=== PATIENT | female | born 1950 | race Caucasian/White ===

== ENCOUNTER 2019-11-13 12:21 | Emergency (ER) | payer OTHER ==
[~2019-11-13] VITALS: Ht 152.4 cm; Wt 68.0 kg
[2019-11-13] MEDS ORDERED: SODIUM CHLORIDE 0.9% 1,000 ML IVB ONE (13:04)
[2019-11-13 14:04] LABS: Basophils # (auto) 0.1 10 ^3/uL (0-0.2); Eosinophils # (auto) 0.1 10 ^3/uL (0-0.8); Eosinophils % (auto) 1.6 % (0.0-7.0); Hematocrit 40.8 % (36.0-46.0); Hemoglobin 13.8 g/dL (12.2-16.2); Lymphocytes # (auto) 1.5 10 ^3/uL (0.4-5.4); Lymphocytes % (auto) 17.7 % (10.0-50.0); Mean Corpuscular Hemoglobin 32.5 pg (28.0-32.0); Mean Corpuscular Hgb Conc. 33.8 g/dL (32.0-36.0); Mean Corpuscular Volume 96.2 fL (80.0-100.0); Monocytes # (auto) 0.4 10 ^3/uL (0-1.3); Neutrophils # (auto) 6.4 10 ^3/uL (1.6-8.6); Neutrophils % (auto) 74.7 % (37.0-80.0); Nucleated Red Blood Cells % 0.1 %; Platelet Count (auto) 267 10^3/uL (140-450); Red Blood Cells 4.24 10^6/uL (4.0-5.20); Red Cell Distribution Width 13.5 % (11.8-14.3); White Blood Cell 8.5 10^3/uL (4.4-10.8)
[2019-11-13 14:21] LABS: Albumin 3.3 g/dL (3.4-5.0); Anion Gap 6 (5-15); Blood Urea Nitrogen 14 mg/dL (7-18); Calcium 7.6 mg/dL (8.5-10.1); Carbon Dioxide 28 mmol/L (21-32); Chloride 110 mmol/L (98-107); Glucose 86 mg/dL (74-106); Magnesium 2.2 mg/dL (1.6-2.6); Potassium 3.5 mmol/L (3.5-5.1); Sodium 144 mmol/L (136-145)
[2019-11-13 14:28] LABS: Alanine Aminotransferase 28 U/L (13-56); Alkaline Phosphatase 82 U/L (45-117); Aspartate Aminotransferase 34 U/L (15-37); BUN/Creatinine Ratio 23.7; Bilirubin, Total 0.2 mg/dL (0.2-1.0); GFR African American 130 mL/min; GFR Non-African American 107 mL/min; Total Protein 5.8 g/dL (6.4-8.2)
[2019-11-13] MEDS ORDERED: FOLIC ACID 1 MG, MULTIPLE VITAMIN 10 ML, MAGNESIUM SULF SDV 50% 8 MEQ, THIAMINE INJ 100... INJ STA ×5 (14:44)
[2019-11-13] MEDS ORDERED: THIAMINE 100mg/ml INJ (200mg/2ml VIAL) IV ONE (14:45)
[2019-11-13] MEDS ORDERED: ACETAMINOPHEN 325 MG TAB PO ONE (14:45)
[2019-11-13 18:39] VITALS: BP 136/69
[2019-11-13] MEDS ORDERED: cefTRIAXone SOD 1,000 MG VL IM ONE (20:00)
[2019-11-13] MEDS ORDERED: LIDOCAINE 1% HCL (LOCAL ANESTH.) INJ 20ML MDV ONE (20:00)
== END 2019-11-13 20:52 | disposition home or self-care (01) ==
LOC: ER 12:21 → EDBD 12:21 → ER 20:52
DX: S63.104A Unspecified dislocation of right thumb, initial encounter (principal); S61.011A Laceration without foreign body of right thumb without damage to nail, initial encounter; F10.129 Alcohol abuse with intoxication, unspecified; R55 Syncope and collapse; I10 Essential (primary) hypertension; Y90.9 Presence of alcohol in blood, level not specified; W10.8XXA Fall (on) (from) other stairs and steps, initial encounter; Y93.89 Activity, other specified; Y92.89 Other specified places as the place of occurrence of the external cause; Y99.8 Other external cause status
CPT/HCPCS: 26770; 36415; 70450; 71045; 73130; 73140; 80053; 80320; 83735; 84484; 85025; 93005; 96365; 96372; 96375; 99285; J0696; J2001; J3411; J3475; J7030; 12001

== ENCOUNTER 2020-05-05 19:04 | Emergency (ER) | payer OTHER ==
[~2020-05-05] VITALS: Ht 162.6 cm; Wt 68.0 kg
[2020-05-05] MEDS ORDERED: SODIUM CHLORIDE 0.9% 1,000 ML IV ONE ×2 (19:45→21:15)
[2020-05-05 20:47] LABS: Basophils # (auto) 0 10 ^3/uL (0-0.2); Basophils % (auto) 0.5 % (0.0-2.0); Eosinophils # (auto) 0.1 10 ^3/uL (0-0.8); Hematocrit 34.9 % (36.0-46.0); Hemoglobin 11.8 g/dL (12.2-16.2); Lymphocytes # (auto) 0.8 10 ^3/uL (0.4-5.4); Lymphocytes % (auto) 11.4 % (10.0-50.0); Mean Corpuscular Hemoglobin 32.5 pg (28.0-32.0); Mean Corpuscular Hgb Conc. 33.8 g/dL (32.0-36.0); Monocytes # (auto) 0.5 10 ^3/uL (0-1.3); Monocytes % (auto) 7.1 % (0.0-12.0); Neutrophils # (auto) 5.5 10 ^3/uL (1.6-8.6); Platelet Count (auto) 189 10^3/uL (140-450); Red Blood Cells 3.64 10^6/uL (4.0-5.20); Red Cell Distribution Width 14.6 % (11.8-14.3); White Blood Cell 6.9 10^3/uL (4.4-10.8)
[2020-05-05 20:57] LABS: Albumin 3.5 g/dL (3.4-5.0); Anion Gap 6 (5-15); Blood Urea Nitrogen 26 mg/dL (7-18); Calcium 7.8 mg/dL (8.5-10.1); Carbon Dioxide 27 mmol/L (21-32); Chloride 107 mmol/L (98-107); Glucose 92 mg/dL (74-106); INR 1.08 (0.9-1.15); Partial Thromboplastin Time 25.1 sec (23.0-31.2); Sodium 140 mmol/L (136-145)
[2020-05-05 21:04] LABS: Alanine Aminotransferase 32 U/L (13-56); Alkaline Phosphatase 103 U/L (45-117); Aspartate Aminotransferase 34 U/L (15-37); BUN/Creatinine Ratio 18.6; Bilirubin, Total 0.5 mg/dL (0.2-1.0); GFR African American 48 mL/min; GFR Non-African American 40 mL/min; Total Protein 5.9 g/dL (6.4-8.2)
[2020-05-05 21:22] LABS: Potassium 2.7 mmol/L (3.5-5.1)
[2020-05-05] MEDS ORDERED: PAR20T PO (21:33)
[2020-05-05] MEDS ORDERED: LAMO200T34 PO (21:33)
[2020-05-05] MEDS ORDERED: BISO5TAB44 PO (21:33)
[2020-05-05] MEDS ORDERED: LOSA-39 PO (21:33)
[2020-05-05] MEDS ORDERED: ARIP5TAB36 PO (21:33)
[2020-05-05] MEDS ORDERED: GABA300C10 PO (21:33)
[2020-05-05] MEDS ORDERED: HYDR12.56 PO (21:33)
[2020-05-05] MEDS ORDERED: POTASSIUM CHL 20MEQ/100ML 100 ML IV ONE (22:00)
[2020-05-05] MEDS ORDERED: POTASSIUM EFFERVESENT TAB 25 MEQ PO ONE (22:00)
[2020-05-06] VITALS: BP 92/59
[2020-05-06 01:56] LABS: Urine Bacteria FEW /hpf (None Seen); Urine Blood Negative /uL (Negative); Urine Hyaline Cast MOD /lpf (0 - 2); Urine WBC 89 /hpf (0 - 5)
== END 2020-05-06 02:31 | disposition home or self-care (01) ==
LOC: EDBD 19:04 → ER 19:04
DX: E87.6 Hypokalemia (principal); N39.0 Urinary tract infection, site not specified; I10 Essential (primary) hypertension; F41.9 Anxiety disorder, unspecified
CPT/HCPCS: 36415; 70450; 71045; 80053; 81001; 83605; 83880; 84484; 85025; 85610; 85730; 87040; 87086; 96361; 96365; 96366; 99285; J3480; J7030

== ENCOUNTER 2021-07-01 17:50 | Emergency (ER) | payer OTHER ==
[~2021-07-01] VITALS: Ht 152.4 cm; Wt 53.1 kg
[~2021-07-01 17:50] MED LIST: ARIP5TAB36 PO; BISO5TAB44 PO; GABA300C10 PO; HYDR12.56 PO; LAMO200T34 PO; LOSA-39 PO; PAR20T PO
[2021-07-01] MEDS ORDERED: HYDROcodone-ACET 5/325MG TAB PO ONE (19:45)
[2021-07-01 20:38] VITALS: BP 103/67
== END 2021-07-01 21:26 | disposition home or self-care (01) ==
LOC: ER 17:50 → EDBD 17:50 → ER 21:26
DX: S90.32XA Contusion of left foot, initial encounter (principal); W18.39XA Other fall on same level, initial encounter; Y93.89 Activity, other specified; Y92.89 Other specified places as the place of occurrence of the external cause; Y99.8 Other external cause status
CPT/HCPCS: 29515; 72170; 73610; 73630

== ENCOUNTER 2022-04-02 21:42 | Emergency (ER) | payer OTHER ==
[~2022-04-02] VITALS: Ht 162.6 cm; Wt 150.0 kg
[2022-04-02 23:11] LABS: Basophils # (auto) 0 10 ^3/uL (0-0.2); Basophils % (auto) 1.1 % (0.0-2.0); Eosinophils # (auto) 0.1 10 ^3/uL (0-0.8); Eosinophils % (auto) 2.5 % (0.0-7.0); Hematocrit 31.4 % (36.0-46.0); Lymphocytes # (auto) 0.7 10 ^3/uL (0.4-5.4); Lymphocytes % (auto) 16.2 % (10.0-50.0); Mean Corpuscular Hemoglobin 31.1 pg (28.0-32.0); Mean Corpuscular Hgb Conc. 31.9 g/dL (32.0-36.0); Mean Corpuscular Volume 97.4 fL (80.0-100.0); Monocytes # (auto) 0.3 10 ^3/uL (0-1.3); Monocytes % (auto) 5.9 % (0.0-12.0); Neutrophils # (auto) 3.2 10 ^3/uL (1.6-8.6); Neutrophils % (auto) 74.3 % (37.0-80.0); Red Blood Cells 3.23 10^6/uL (4.0-5.20); Red Cell Distribution Width 16.5 % (11.8-14.3); White Blood Cell 4.3 10^3/uL (4.4-10.8)
[2022-04-02 23:34] LABS: BUN/Creatinine Ratio 13.6; Calcium 6.9 mg/dL (8.5-10.1)
[2022-04-02 23:37] LABS: Bilirubin, Total 0.3 mg/dL (0.2-1.0)
[2022-04-02 23:38] LABS: Potassium 2.9 mmol/L (3.5-5.1)
[2022-04-03] MEDS ORDERED: SODIUM CHLORIDE 0.9% 1,000 ML IV ONE ×3 (00:15→03:00)
[2022-04-03] MEDS: POTASSIUM CHL 20MEQ/100ML 100 ML IV SCH ×3 (01:55→05:49)
[2022-04-03 03:08] LABS: Amphetamine Screen, Urine NEGATIVE (NEGATIVE); Barbiturate Scree,Urine NEGATIVE (NEGATIVE); Benzodiazephine Screen, Urine POSITIVE (NEGATIVE); Cannabinoid Screen, Urine NEGATIVE (NEGATIVE); Cocaine Screen, Urine NEGATIVE (NEGATIVE); Opiate Scree,Urine POSITIVE (NEGATIVE); Phencyclidine Screen, Urine NEGATIVE (NEGATIVE)
[2022-04-03 03:15] LABS: Urine Bacteria FEW /hpf (None Seen); Urine Blood Negative /uL (Negative); Urine Hyaline Cast FEW /lpf (0 - 2); Urine Mucus FEW (None Seen); Urine Specific Gravity 1.007 (1.001-1.035); Urine WBC 41 /hpf (0 - 5)
[2022-04-03 05:23] LABS: Calcium 7.2 mg/dL (8.5-10.1)
[2022-04-03 05:26] LABS: BUN/Creatinine Ratio 12.9
[2022-04-03] MEDS ORDERED: LEVO500T31 PO (08:35)
[2022-04-03] MEDS ORDERED: FOLIC ACID 1 MG TAB PO ONE (08:45)
[2022-04-03] MEDS ORDERED: DEXTROSE (50%) 50ML SYRG IV ONE (09:00)
[2022-04-03] MEDS ORDERED: cefTRIAXone 1GM/50ML D5W 50 ML IV SCH (09:00)
[2022-04-03] MEDS ORDERED: THIAMINE 100mg/ml INJ (200mg/2ml VIAL) IV SCH (10:00)
[2022-04-03 11:55] VITALS: BP 125/55
== END 2022-04-03 12:45 | disposition home or self-care (01) ==
LOC: EDUNIT# 21:42 → EDBD 21:42 → ER 21:42
DX: R55 Syncope and collapse (principal); I95.9 Hypotension, unspecified; E87.6 Hypokalemia; E16.2 Hypoglycemia, unspecified; I10 Essential (primary) hypertension; Z79.899 Other long term (current) drug therapy; Z20.822 Contact with and (suspected) exposure to COVID-19
CPT/HCPCS: 36415; 71045; 80048; 80053; 80307; 81001; 82962; 83605; 83880; 84484; 85025; 87426; 96361; 96365; 96366; 96367; 96375; 99285; J0696; J3411; J3480; J7030; J7042

== ENCOUNTER 2022-04-17 10:05 | Emergency (ER) | payer OTHER ==
[~2022-04-17] VITALS: Ht 154.9 cm; Wt 51.5 kg
[~2022-04-17 10:05] MED LIST changes: +LEVO500T31 PO
[2022-04-17 11:29] VITALS: BP 110/57
== END 2022-04-17 13:24 | disposition home or self-care (01) ==
LOC: ER 10:05
DX: S52.502A Unspecified fracture of the lower end of left radius, initial encounter for closed fracture (principal); I10 Essential (primary) hypertension; W01.0XXA Fall on same level from slipping, tripping and stumbling without subsequent striking against object, initial encounter; Y93.89 Activity, other specified; Y92.89 Other specified places as the place of occurrence of the external cause; Y99.8 Other external cause status
CPT/HCPCS: 29125; 73110

== ENCOUNTER 2022-05-01 08:36 | Inpatient (IN) | payer OTHER ==
[~2022-05-01] VITALS: Ht 152.4 cm; Wt 54.0 kg
[2022-05-01 10:17] LABS: Basophils # (auto) 0 10 ^3/uL (0-0.2); Basophils % (auto) 0.5 % (0.0-2.0); Eosinophils # (auto) 0.2 10 ^3/uL (0-0.8); Eosinophils % (auto) 2.4 % (0.0-7.0); Hemoglobin 11.4 g/dL (12.2-16.2); Lymphocytes # (auto) 0.6 10 ^3/uL (0.4-5.4); Mean Corpuscular Hemoglobin 30.6 pg (28.0-32.0); Mean Corpuscular Hgb Conc. 32.6 g/dL (32.0-36.0); Mean Corpuscular Volume 93.7 fL (80.0-100.0); Monocytes # (auto) 0.4 10 ^3/uL (0-1.3); Monocytes % (auto) 5.2 % (0.0-12.0); Neutrophils # (auto) 6.2 10 ^3/uL (1.6-8.6); Neutrophils % (auto) 83.9 % (37.0-80.0); Red Blood Cells 3.73 10^6/uL (4.0-5.20); Red Cell Distribution Width 15.4 % (11.8-14.3); White Blood Cell 7.3 10^3/uL (4.4-10.8)
[2022-05-01 10:35] LABS: Calcium 8.8 mg/dL (8.5-10.1); Potassium 3.7 mmol/L (3.5-5.1)
[2022-05-01 10:40] LABS: BUN/Creatinine Ratio 13.3; Bilirubin, Total 0.7 mg/dL (0.2-1.0); Total Protein 6.3 g/dL (6.4-8.2)
[2022-05-01 11:38] LABS: INR 1.11 (0.9-1.15); Partial Thromboplastin Time 30.2 sec (24.6-33.4)
[2022-05-01] MEDS ORDERED: hydrALAZINE HCL 20 MG/ML VL IV PRN (11:45)
[2022-05-01] MEDS ORDERED: MORPHINE SULFATE INJ 2 MG/ml SYRG IV PRN (11:45)
[2022-05-01] MEDS ORDERED: NITROGLYCERIN 0.4 MG SL TAB SL PRN (11:45)
[2022-05-01] MEDS ORDERED: HYDROcodone-ACET 10/325MG TAB PO PRN (14:00)
[2022-05-01 23:00] VITALS: BP 149/72
[2022-05-02 05:00] VITALS: BP 127/61
[2022-05-02 05:17] LABS: Basophils # (auto) 0.1 10 ^3/uL (0-0.2); Basophils % (auto) 1.1 % (0.0-2.0); Eosinophils # (auto) 0.3 10 ^3/uL (0-0.8); Eosinophils % (auto) 4.8 % (0.0-7.0); Hematocrit 29.4 % (36.0-46.0); Hemoglobin 10.2 g/dL (12.2-16.2); Lymphocytes # (auto) 0.8 10 ^3/uL (0.4-5.4); Lymphocytes % (auto) 12.6 % (10.0-50.0); Mean Corpuscular Hemoglobin 31.9 pg (28.0-32.0); Mean Corpuscular Hgb Conc. 34.6 g/dL (32.0-36.0); Mean Corpuscular Volume 92.4 fL (80.0-100.0); Monocytes # (auto) 0.4 10 ^3/uL (0-1.3); Monocytes % (auto) 6.8 % (0.0-12.0); Neutrophils # (auto) 4.6 10 ^3/uL (1.6-8.6); Neutrophils % (auto) 74.7 % (37.0-80.0); Red Blood Cells 3.18 10^6/uL (4.0-5.20); Red Cell Distribution Width 15.8 % (11.8-14.3); White Blood Cell 6.2 10^3/uL (4.4-10.8)
[2022-05-02 05:34] LABS: Potassium 3.4 mmol/L (3.5-5.1)
[2022-05-02 05:39] LABS: BUN/Creatinine Ratio 17.9; Calcium 8.4 mg/dL (8.5-10.1)
[2022-05-02 08:00] VITALS: BP 164/80
[2022-05-02] MEDS ORDERED: ceFAZolin 1GM/50ML 100 ML IV ONE (09:10)
[2022-05-02] MEDS ORDERED: BUPIVACAINE W/ EPINEPH 0.5% INJ 50ML MDV IJ ONE (09:38)
[2022-05-02] MEDS ORDERED: fentaNYL CITRATE 100 MCG/2 ML VL ONE ×2 (10:50→12:14)
[2022-05-02] MEDS ORDERED: MIDAZOLAM HCL 2MG/2ML 2ml VIAL (1mg/ml) ONE (10:50)
[2022-05-02] MEDS ORDERED: HYDROmorphone HCL 2 MG/ML VL/or syr ONE (11:51)
[2022-05-02] MEDS ORDERED: HYDROmorphone HCL 2 MG/ML VL/or syr IV ONE (12:00)
[2022-05-02 12:07] VITALS: BP 164/80
[2022-05-02] MEDS ORDERED: PROPOFOL 10 MG/ML 20 ML IV ONE (12:32)
[2022-05-02] MEDS ORDERED: ONDANSETRON HCL 4 MG/2 ML VIAL ONE (12:32)
[2022-05-02] MEDS ORDERED: LIDOCAINE 2% (LOCAL ANESTH.) PF 5ml SDV ONE (12:32)
[2022-05-02] MEDS ORDERED: GLYCOPYRROLATE 0.2 MG/ML 1ML VIAL ONE (12:57)
== END 2022-05-02 13:33 | disposition home health service (06) | DRG 563 ==
LOC: ER 08:36 → WEST WING 11:48 → OVERFLOW 20:07 → WEST WING 22:35
PROVIDERS: ADMIT Internal Medicine; ATTEND Internal Medicine
DX: S52.592A Other fractures of lower end of left radius, initial encounter for closed fracture (principal); W18.39XA Other fall on same level, initial encounter; I10 Essential (primary) hypertension; F41.9 Anxiety disorder, unspecified; Z20.822 Contact with and (suspected) exposure to COVID-19; Y93.89 Activity, other specified; Y92.89 Other specified places as the place of occurrence of the external cause; Y99.8 Other external cause status; Z90.710 Acquired absence of both cervix and uterus; Z98.84 Bariatric surgery status
CPT/HCPCS: 36415; 71046; 73110; 80048; 80053; 84484; 85025; 85610; 85730; 86850; 86900; 86901; 96374; G0378; J0690; J2001; J2250; J2405; J2704

== ENCOUNTER 2022-05-10 10:17 | Emergency (ER) | payer OTHER ==
[~2022-05-10] VITALS: Ht 160 cm; Wt 140.0 kg
[~2022-05-10 10:17] MED LIST changes: -LEVO500T31 PO
[2022-05-10 10:54] LABS: Basophils # (auto) 0.1 10 ^3/uL (0-0.2); Basophils % (auto) 1.1 % (0.0-2.0); Eosinophils # (auto) 0.1 10 ^3/uL (0-0.8); Eosinophils % (auto) 1.7 % (0.0-7.0); Hematocrit 35.5 % (36.0-46.0); Hemoglobin 11.3 g/dL (12.2-16.2); Lymphocytes # (auto) 0.8 10 ^3/uL (0.4-5.4); Lymphocytes % (auto) 10.1 % (10.0-50.0); Mean Corpuscular Hemoglobin 30.3 pg (28.0-32.0); Mean Corpuscular Hgb Conc. 31.7 g/dL (32.0-36.0); Mean Corpuscular Volume 95.4 fL (80.0-100.0); Monocytes # (auto) 0.4 10 ^3/uL (0-1.3); Monocytes % (auto) 5.1 % (0.0-12.0); Neutrophils # (auto) 6.4 10 ^3/uL (1.6-8.6); Red Blood Cells 3.72 10^6/uL (4.0-5.20); Red Cell Distribution Width 15.3 % (11.8-14.3); White Blood Cell 7.8 10^3/uL (4.4-10.8)
[2022-05-10 11:23] LABS: Albumin 3.8 g/dL (3.4-5.0); Calcium 8.7 mg/dL (8.5-10.1); Potassium 3.6 mmol/L (3.5-5.1)
[2022-05-10 11:26] LABS: BUN/Creatinine Ratio 14.1; Bilirubin, Total 0.7 mg/dL (0.2-1.0); Total Protein 6.2 g/dL (6.4-8.2)
[2022-05-10] MEDS ORDERED: methylPREDNISolone SOD SUCC 125 MG/2 ML VL IV ONE (12:15)
[2022-05-10] MEDS ORDERED: cefTRIAXone 1GM/50ML D5W 50 ML IV ONE (16:15)
[2022-05-10] MEDS ORDERED: AZITHROMYCIN 500MG/ 250ML 250 ML IV ONE (16:15)
[2022-05-10] MEDS ORDERED: FUROSEMIDE 40 MG/4 ML VIAL IV ONE (17:00)
[2022-05-10] MEDS ORDERED: FUROSEMIDE 20 MG/2 ML VIAL IV ONE ×2 (17:30→18:30)
[2022-05-10] MEDS ORDERED: IPRAAER6 IN (18:04)
[2022-05-10] MEDS ORDERED: FURO20TA3 PO (18:04)
[2022-05-10] MEDS ORDERED: SPIR25TA PO (18:04)
[2022-05-10] MEDS ORDERED: IPRATROPIUM BROM 0.5 MG/2.5ML INH SOL NEB SCH (18:30)
[2022-05-10 19:09] LABS: Urine Bacteria NONE SEEN /hpf (None Seen); Urine Blood Negative /uL (Negative); Urine Specific Gravity 1.036 (1.001-1.035); Urine WBC 1 /hpf (0 - 5)
[2022-05-10 21:17] VITALS: BP 165/76
[2022-05-10] MEDS ORDERED: IPRATROPIUM BROM 0.5 MG/2.5ML INH SOL NEB PRN (22:00)
[2022-05-11 12:00] VITALS: BP 141/68
== END 2022-05-11 19:20 | disposition left against medical advice (07) ==
LOC: ER 10:17 → EDBD 10:17 → ER 05-11 19:20
DX: R06.03 Acute respiratory distress (principal); J18.9 Pneumonia, unspecified organism; I10 Essential (primary) hypertension; Z90.49 Acquired absence of other specified parts of digestive tract; Z90.89 Acquired absence of other organs; Z90.710 Acquired absence of both cervix and uterus
CPT/HCPCS: 36415; 71045; 71275; 80053; 81001; 83880; 84484; 85025; 93005; 96365; 96366; 96367; 96375; 96376; 99285; J0456; J0696; J1940; J2930

== ENCOUNTER 2023-05-30 11:35 | Emergency (ER) | payer OTHER ==
[~2023-05-30] VITALS: Ht 152.4 cm; Wt 52.0 kg
[~2023-05-30 11:35] MED LIST changes: +FURO20TA3 PO; +GABA-1250 PO; -GABA300C10 PO; -HYDR12.56 PO; +HYDR12.59 PO; +IPRAAER6 IN; -LOSA-39 PO; +LOSA100T58 PO; +SPIR25TA PO
[2023-05-30 12:38] LABS: Basophils # (auto) 0.1 10 ^3/uL (0-0.2); Basophils % (auto) 1.7 % (0.0-2.0); Eosinophils # (auto) 0.2 10 ^3/uL (0-0.8); Eosinophils % (auto) 3.5 % (0.0-7.0); Hematocrit 34.8 % (36.0-46.0); Hemoglobin 11.2 g/dL (12.2-16.2); Lymphocytes # (auto) 0.9 10 ^3/uL (0.4-5.4); Lymphocytes % (auto) 14.5 % (10.0-50.0); Mean Corpuscular Hemoglobin 27.9 pg (28.0-32.0); Mean Corpuscular Hgb Conc. 32.2 g/dL (32.0-36.0); Mean Corpuscular Volume 86.8 fL (80.0-100.0); Monocytes # (auto) 0.6 10 ^3/uL (0-1.3); Monocytes % (auto) 10.3 % (0.0-12.0); Neutrophils # (auto) 4.4 10 ^3/uL (1.6-8.6); Red Blood Cells 4.01 10^6/uL (4.0-5.20); Red Cell Distribution Width 19.3 % (11.8-14.3); White Blood Cell 6.2 10^3/uL (4.4-10.8)
[2023-05-30 13:26] LABS: Albumin 4.2 g/dL (3.2-4.8); Alkaline Phosphatase 102 U/L (46-116); Anion Gap 6 (5-15); Aspartate Aminotransferase 15 U/L (13-40); BUN/Creatinine Ratio 16.1 (10.0-20.0); Bilirubin, Total 0.3 mg/dL (0.2-1.0); Blood Urea Nitrogen 18 mg/dL (9-23); Calcium 8.8 mg/dL (8.5-10.1); Carbon Dioxide 29 mmol/L (20-30); Chloride 106 mmol/L (98-107); Glucose 84 mg/dL (74-106); Potassium 3.6 mmol/L (3.5-5.1); Sodium 141 mmol/L (136-145); Total Protein 6.3 g/dL (5.7-8.2)
[2023-05-30 13:29] LABS: Alanine Aminotransferase < 9 U/L (7-40)
[2023-05-30 13:42] LABS: Magnesium 1.6 mg/dL (1.6-2.6)
[2023-05-30 17:17] LABS: Urine Bacteria FEW /hpf (None Seen); Urine Blood Negative /uL (Negative); Urine Clarity Clear (Clear); Urine Color Colorless (Yellow); Urine Protein, UAD Negative (Negative); Urine Urobilinogen Normal (Negative); Urine WBC 1 /hpf (0 - 5); Urine pH 5.5 (5.0-8.0)
[2023-05-30 18:00] VITALS: BP 140/80; PULSE 73; RESP 16; TEMP 97.2; O2SAT 96
[2023-05-30] MEDS ORDERED: CEPH500C PO (18:37)
== END 2023-05-30 18:43 | disposition home or self-care (01) ==
LOC: EDBD 11:35 → ER 11:35
DX: R20.0 Anesthesia of skin (principal); N39.0 Urinary tract infection, site not specified; Z79.899 Other long term (current) drug therapy
CPT/HCPCS: 36415; 70450; 80053; 81001; 83605; 83735; 84484; 85025

== ENCOUNTER 2023-06-16 16:36 | Inpatient (IN) | payer OTHER ==
[~2023-06-16] VITALS: Ht 180.3 cm; Wt 57.0 kg
[~2023-06-16 16:36] MED LIST changes: +CEPH500C PO
[2023-06-16] MEDS ORDERED: SODIUM CHLORIDE 0.9% 500 ML IV ONE (17:30)
[2023-06-16 17:55] LABS: Basophils # (auto) 0 10 ^3/uL (0-0.2); Basophils % (auto) 0.3 % (0.0-2.0); Eosinophils # (auto) 0.2 10 ^3/uL (0-0.8); Eosinophils % (auto) 0.9 % (0.0-7.0); Hemoglobin 10.6 g/dL (12.2-16.2); Lymphocytes # (auto) 0.7 10 ^3/uL (0.4-5.4); Lymphocytes % (auto) 3.6 % (10.0-50.0); Mean Corpuscular Hemoglobin 27.4 pg (28.0-32.0); Mean Corpuscular Volume 85.4 fL (80.0-100.0); Monocytes % (auto) 5.5 % (0.0-12.0); Neutrophils # (auto) 16.8 10 ^3/uL (1.6-8.6); Neutrophils % (auto) 89.7 % (37.0-80.0); Nucleated Red Blood Cells % 0.1 %; Red Blood Cells 3.86 10^6/uL (4.0-5.20); Red Cell Distribution Width 19.4 % (11.8-14.3); White Blood Cell 18.7 10^3/uL (4.4-10.8)
[2023-06-16 18:15] LABS: Albumin 3.6 g/dL (3.2-4.8); Alkaline Phosphatase 122 U/L (46-116); Anion Gap 9 (5-15); Aspartate Aminotransferase 16 U/L (13-40); BUN/Creatinine Ratio 15.1 (10.0-20.0); Bilirubin, Total 0.4 mg/dL (0.2-1.0); Blood Urea Nitrogen 36 mg/dL (9-23); Calcium 7.8 mg/dL (8.7-10.4); Carbon Dioxide 24 mmol/L (20-30); Chloride 100 mmol/L (98-107); Glucose 88 mg/dL (74-106); Magnesium 1.4 mg/dL (1.6-2.6); Sodium 133 mmol/L (136-145); Total Protein 5.3 g/dL (5.7-8.2)
[2023-06-16 18:20] LABS: INR 1.21 (0.9-1.15); Partial Thromboplastin Time 34.6 SEC (24.5-34.5); Prothrombin Time 12.5 sec (9.3-11.8)
[2023-06-16 18:49] LABS: Alanine Aminotransferase < 9 U/L (7-40)
[2023-06-16 18:50] LABS: Potassium 2.6 mmol/L (3.5-5.1)
[2023-06-16] MEDS ORDERED: POTASSIUM CHL 20 Meq TABLET PO ONE (19:15)
[2023-06-16] MEDS ORDERED: POTASSIUM CHL 20MEQ/100ML 100 ML IV ONE (19:15)
[2023-06-16] MEDS ORDERED: HEPARIN DRIP/D5W 100UNITS/ML 250 ML IV SCH (21:00)
[2023-06-16] MEDS ORDERED: ASPirin 81 mg TAB PO ONE (21:00)
[2023-06-16] MEDS ORDERED: HEPARIN SODIUM (PORCINE) 5000 UNITS/ML 1ML VIAL IV ONE (21:00)
[2023-06-16] MEDS ORDERED: MORPHINE SULFATE INJ 2 MG/ml SYRG IV PRN (21:15)
[2023-06-16] MEDS ORDERED: SODIUM CHLORIDE 0.9% 1,000 ML IV ONE (21:15)
[2023-06-16] MEDS ORDERED: NITROGLYCERIN 0.4 MG SL TAB SL PRN (21:15)
[2023-06-16] MEDS ORDERED: MAGNESIUM SULFATE 1GM/100ML 100 ML IV ONE (21:30)
[2023-06-16 21:58] LABS: INR 1.17 (0.9-1.15); Partial Thromboplastin Time 33.9 SEC (24.5-34.5); Prothrombin Time 12.2 sec (9.3-11.8)
[2023-06-16 22:45] VITALS: PULSE 85; RESP 19; O2SAT 98
[2023-06-17 03:07] LABS: COVID19 ANTIGEN SOFIA FIA NEGATIVE (NEGATIVE)
[2023-06-17] MEDS ORDERED: SODIUM CHLORIDE 0.9% 1,000 ML IV ONE (04:00)
[2023-06-17 06:13] LABS: Albumin 3.4 g/dL (3.2-4.8); Alkaline Phosphatase 105 U/L (46-116); Anion Gap 10 (5-15); Aspartate Aminotransferase 13 U/L (13-40); BUN/Creatinine Ratio 14.4 (10.0-20.0); Bilirubin, Total 0.4 mg/dL (0.2-1.0); Calcium 7.9 mg/dL (8.7-10.4); Carbon Dioxide 20 mmol/L (20-30); Chloride 106 mmol/L (98-107); Glucose 80 mg/dL (74-106); Potassium 3.2 mmol/L (3.5-5.1); Sodium 136 mmol/L (136-145)
[2023-06-17 06:14] LABS: Total Protein 5.2 g/dL (5.7-8.2)
[2023-06-17 06:16] LABS: Basophils # (auto) 0 10 ^3/uL (0-0.2); Basophils % (auto) 0.2 % (0.0-2.0); Eosinophils # (auto) 0.2 10 ^3/uL (0-0.8); Hematocrit 29.2 % (36.0-46.0); Hemoglobin 9.5 g/dL (12.2-16.2); Lymphocytes # (auto) 0.5 10 ^3/uL (0.4-5.4); Lymphocytes % (auto) 3.1 % (10.0-50.0); Mean Corpuscular Hemoglobin 28.2 pg (28.0-32.0); Mean Corpuscular Hgb Conc. 32.6 g/dL (32.0-36.0); Mean Corpuscular Volume 86.6 fL (80.0-100.0); Monocytes % (auto) 6.6 % (0.0-12.0); Neutrophils # (auto) 14.2 10 ^3/uL (1.6-8.6); Neutrophils % (auto) 89.1 % (37.0-80.0); Red Blood Cells 3.37 10^6/uL (4.0-5.20); Red Cell Distribution Width 19.6 % (11.8-14.3); White Blood Cell 15.9 10^3/uL (4.4-10.8)
[2023-06-17 06:28] LABS: Alanine Aminotransferase < 9 U/L (7-40); Blood Urea Nitrogen 26 mg/dL (9-23)
[2023-06-17 06:38] LABS: Urine Bacteria NONE SEEN /hpf (None Seen); Urine Blood Negative /uL (Negative); Urine Clarity Clear (Clear); Urine Color Yellow (Yellow); Urine Hyaline Cast FEW /lpf (0 - 2); Urine Protein, UAD TRACE (Negative); Urine Specific Gravity 1.015 (1.001-1.035); Urine Urobilinogen Normal (Negative); Urine WBC <1 /hpf (0 - 5)
[2023-06-17 08:30] VITALS: O2SAT 98
[2023-06-17 09:20] VITALS: BP_SYST 112; BP_SYST 114; BP_DIAS 47; BP_DIAS 52; PULSE 83; RESP 16; TEMP 98; TEMP 98.2; O2SAT 100; O2SAT 96
[2023-06-17] MEDS ORDERED: cefTRIAXone 1GM/50ML D5W 50 ML IV SCH (10:00)
[2023-06-17] MEDS ORDERED: HYDR-4902 PO (11:24)
[2023-06-17] MEDS ORDERED: CARB-118 PO (11:25)
[2023-06-17] MEDS ORDERED: ROPI1TAB4 PO (11:29)
[2023-06-17] MEDS ORDERED: PRAV20TA3 PO (11:29)
[2023-06-17 13:00] VITALS: BP 111/51; PULSE 77; RESP 16; TEMP 98; O2SAT 97
[2023-06-17] MEDS ORDERED: HYDROcodone-ACET 5/325MG TAB PO PRN (14:00)
[2023-06-17] MEDS: MAGNESIUM SULFATE 1GM/100ML 100 ML IV SCH ×4 (14:56→18:03)
[2023-06-17] MEDS: GABAPENTIN 300 MG CAP PO SCH ×2 (14:57→22:26)
[2023-06-17] MEDS: metroNIDAZOLE 500MG/100ML 100 ML IV SCH ×2 (16:30→22:26)
[2023-06-17 17:00] VITALS: BP 119/53; PULSE 73; RESP 16; TEMP 97.6; O2SAT 96
[2023-06-17] MEDS: FUROSEMIDE 20 MG TAB PO SCH (18:03)
[2023-06-17] MEDS: VANCOMYCIN HCL 125MG/5ML ORAL SOL PO SCH ×2 (18:04→22:27)
[2023-06-17 20:00] VITALS: PULSE 80; RESP 16
[2023-06-17 22:00] VITALS: BP 99/50; PULSE 83; RESP 18; TEMP 97.7; O2SAT 95
[2023-06-17] MEDS: ROPINIROLE HCL 1 MG PO SCH (22:00)
[2023-06-17] MEDS: CARBIDOPA W LEVODOPA 25/100mg TABLET PO SCH (22:26)
[2023-06-18] VITALS (8 sets, daily range): BP systolic 101–140; BP diastolic 56–66; PULSE 82–93; RESP 16–18; TEMP 97.6–98.3; O2SAT 94–98
[2023-06-18] MEDS ORDERED: POTASSIUM CHL 20 Meq TABLET PO ONE (05:30)
[2023-06-18] MEDS: FUROSEMIDE 20 MG TAB PO SCH ×2 (05:42→18:00)
[2023-06-18] MEDS: GABAPENTIN 300 MG CAP PO SCH ×3 (05:42→21:03)
[2023-06-18] MEDS: CARBIDOPA W LEVODOPA 25/100mg TABLET PO SCH ×3 (05:42→21:03)
[2023-06-18] MEDS: VANCOMYCIN HCL 125MG/5ML ORAL SOL PO SCH ×4 (05:43→21:03)
[2023-06-18] MEDS: metroNIDAZOLE 500MG/100ML 100 ML IV SCH ×3 (05:43→21:01)
[2023-06-18 08:16] LABS: Basophils # (auto) 0.1 10 ^3/uL (0-0.2); Basophils % (auto) 0.5 % (0.0-2.0); Eosinophils # (auto) 0.4 10 ^3/uL (0-0.8); Hematocrit 28.9 % (36.0-46.0); Hemoglobin 9.3 g/dL (12.2-16.2); Lymphocytes # (auto) 0.5 10 ^3/uL (0.4-5.4); Lymphocytes % (auto) 2.6 % (10.0-50.0); Mean Corpuscular Hemoglobin 27.5 pg (28.0-32.0); Mean Corpuscular Hgb Conc. 32.3 g/dL (32.0-36.0); Mean Corpuscular Volume 85.2 fL (80.0-100.0); Monocytes # (auto) 0.8 10 ^3/uL (0-1.3); Monocytes % (auto) 4.4 % (0.0-12.0); Neutrophils # (auto) 15.9 10 ^3/uL (1.6-8.6); Neutrophils % (auto) 90.5 % (37.0-80.0); Red Blood Cells 3.39 10^6/uL (4.0-5.20); Red Cell Distribution Width 18.7 % (11.8-14.3); White Blood Cell 17.6 10^3/uL (4.4-10.8)
[2023-06-18 08:55] LABS: Alanine Aminotransferase 10 U/L (7-40); Alkaline Phosphatase 115 U/L (46-116); Anion Gap 8 (5-15); BUN/Creatinine Ratio 16.8 (10.0-20.0); Blood Urea Nitrogen 19 mg/dL (9-23); Carbon Dioxide 26 mmol/L (20-30); Chloride 101 mmol/L (98-107); Glucose 84 mg/dL (74-106); Sodium 135 mmol/L (136-145)
[2023-06-18 08:56] LABS: Albumin 3.3 g/dL (3.2-4.8); Bilirubin, Total 0.2 mg/dL (0.2-1.0); Total Protein 4.8 g/dL (5.7-8.2)
[2023-06-18 09:33] LABS: Aspartate Aminotransferase 13 U/L (13-40)
[2023-06-18] MEDS ORDERED: PARoxetine 20 MG TAB PO SCH (10:00)
[2023-06-18] MEDS ORDERED: LOSARTAN POTASSIUM 50 MG TAB PO SCH (10:00)
[2023-06-18] MEDS ORDERED: SPIRONOLACTONE 25 MG TAB PO SCH (10:00)
[2023-06-18] MEDS ORDERED: POTASSIUM EFFERVESENT TAB 25 MEQ PO ONE (14:45)
[2023-06-18] MEDS ORDERED: VANC250PO PO (16:06)
[2023-06-18] MEDS: ROPINIROLE HCL 1 MG PO SCH (21:06)
[2023-06-18] MEDS ORDERED: PRAVASTATIN SODIUM 20 MG TAB PO SCH (22:00)
[2023-06-19] MEDS ORDERED: POTASSIUM EFFERVESENT TAB 25 MEQ PO SCH (10:00)
[2023-06-19 10:20] LABS: Folate (Folic Acid) 17.58 ng/mL (>5.38)
== END 2023-06-18 23:20 | disposition home health service (06) | DRG 871 ==
LOC: EDBD 16:36 → ER 16:36 → TELE 21:18 → TELE-EAST 06-17 08:52
PROVIDERS: ADMIT Internal Medicine; ATTEND Student in an Organized Health Care Education/Training Program
DX: A41.4 Sepsis due to anaerobes (principal); I21.4 Non-ST elevation (NSTEMI) myocardial infarction; R65.21 Severe sepsis with septic shock; N17.9 Acute kidney failure, unspecified; A04.72 Enterocolitis due to Clostridium difficile, not specified as recurrent; F11.20 Opioid dependence, uncomplicated; I48.91 Unspecified atrial fibrillation; E87.6 Hypokalemia; G20.A1 Parkinson's disease without dyskinesia, without mention of fluctuations; I50.9 Heart failure, unspecified; D64.9 Anemia, unspecified; Z96.643 Presence of artificial hip joint, bilateral; Z20.822 Contact with and (suspected) exposure to COVID-19; E87.8 Other disorders of electrolyte and fluid balance, not elsewhere classified; F41.9 Anxiety disorder, unspecified; R26.81 Unsteadiness on feet; F31.9 Bipolar disorder, unspecified; G89.29 Other chronic pain; I11.0 Hypertensive heart disease with heart failure; Z87.440 Personal history of urinary (tract) infections; Z90.710 Acquired absence of both cervix and uterus; Z91.81 History of falling; Z98.84 Bariatric surgery status; Z90.49 Acquired absence of other specified parts of digestive tract
CPT/HCPCS: 36415; 70450; 71045; 74176; 80053; 81001; 82607; 82746; 82962; 83605; 83735; 83880; 84484; 85025; 85379; 85610; 85730; 87177; 87426; 87493; 93005; 93306; 96361; 96365; 96367; 99291; G0378; J0696; J3480; J3490

== ENCOUNTER 2023-07-15 17:00 | Emergency (ER) | payer OTHER ==
[~2023-07-15] VITALS: Ht 152.4 cm; Wt 53.6 kg
[~2023-07-15 17:00] MED LIST changes: +CARB-118 PO; -CEPH500C PO; +HYDR-4902 PO; +PRAV20TA3 PO; +ROPI1TAB4 PO; +VANC250PO PO
[2023-07-15 17:46] LABS: Basophils # (auto) 0.1 10 ^3/uL (0-0.2); Eosinophils # (auto) 0.1 10 ^3/uL (0-0.8); Eosinophils % (auto) 1.5 % (0.0-7.0); Hematocrit 34.3 % (36.0-46.0); Hemoglobin 10.9 g/dL (12.2-16.2); Lymphocytes # (auto) 0.7 10 ^3/uL (0.4-5.4); Lymphocytes % (auto) 7.6 % (10.0-50.0); Mean Corpuscular Hemoglobin 27.1 pg (28.0-32.0); Mean Corpuscular Hgb Conc. 31.8 g/dL (32.0-36.0); Mean Corpuscular Volume 85.3 fL (80.0-100.0); Monocytes # (auto) 0.5 10 ^3/uL (0-1.3); Monocytes % (auto) 6.1 % (0.0-12.0); Neutrophils # (auto) 7.4 10 ^3/uL (1.6-8.6); Neutrophils % (auto) 83.8 % (37.0-80.0); Red Blood Cells 4.03 10^6/uL (4.0-5.20); Red Cell Distribution Width 18.9 % (11.8-14.3); White Blood Cell 8.8 10^3/uL (4.4-10.8)
[2023-07-15 18:11] LABS: Albumin 4.2 g/dL (3.2-4.8); Alkaline Phosphatase 113 U/L (46-116); Anion Gap 9 (5-15); Aspartate Aminotransferase 30 U/L (13-40); BUN/Creatinine Ratio 7.2 (10.0-20.0); Bilirubin, Total 0.4 mg/dL (0.2-1.0); Blood Alcohol 91.1 mg/dL (<10); Blood Urea Nitrogen 8 mg/dL (9-23); Calcium 8.3 mg/dL (8.5-10.1); Carbon Dioxide 23 mmol/L (20-30); Chloride 99 mmol/L (98-107); Glucose 82 mg/dL (74-106); Potassium 3.7 mmol/L (3.5-5.1); Sodium 131 mmol/L (136-145); Total Protein 6.3 g/dL (5.7-8.2)
[2023-07-15] MEDS ORDERED: SODIUM CHLORIDE 0.9% 1,000 ML IV ONE (18:15)
[2023-07-15 18:24] LABS: Alanine Aminotransferase < 9 U/L (7-40)
[2023-07-15] MEDS ORDERED: IPRATROPIUM BROM 0.5 MG/2.5ML INH SOL HHN ONE (19:15)
[2023-07-15] MEDS ORDERED: AZITHROMYCIN 500MG/ 250ML 250 ML IV ONE (19:15)
[2023-07-15] MEDS ORDERED: DexAMETHasone SOD PHOS 10MG/1ML VIAL INJ IV ONE (19:15)
[2023-07-15] MEDS ORDERED: LORazepam 2MG/ML-1ML VIAL IV ONE (19:15)
[2023-07-15] MEDS ORDERED: cefTRIAXone 1GM/50ML D5W 50 ML IV ONE (19:15)
[2023-07-15] MEDS ORDERED: ALBUTEROL SULF 2.5 MG/0.5ML(0.5%) NEB SOLN HHN ONE (19:15)
[2023-07-15] MEDS ORDERED: ALBUTEROL MEDNEB 2.5 mg/3ml NEB ONE (19:16)
[2023-07-15] MEDS ORDERED: IPRATROPIUM BROM 0.5 MG/2.5ML INH SOL ONE (19:16)
[2023-07-15 19:24] LABS: Urine WBC None Seen /hpf (0 - 5)
[2023-07-15 19:37] LABS: Base Excess -3.4 mmol/L (-2.0-2.0)
[2023-07-15 19:38] LABS: Urine Bacteria FEW /hpf (None Seen); Urine Blood Negative /uL (Negative); Urine Clarity Clear (Clear); Urine Color Colorless (Yellow); Urine Hyaline Cast FEW /lpf (0 - 2); Urine Protein, UAD Negative (Negative); Urine Specific Gravity 1.006 (1.001-1.035); Urine Urobilinogen Normal (Negative); Urine pH 5.5 (5.0-8.0)
[2023-07-15 19:50] LABS: Amphetamine Screen, Urine Neg (NEGATIVE); Barbiturate Scree,Urine Neg (NEGATIVE); Benzodiazephine Screen, Urine Neg (NEGATIVE); Cannabinoid Screen, Urine Neg (NEGATIVE); Cocaine Screen, Urine Neg (NEGATIVE); Opiate Scree,Urine Neg (NEGATIVE); Phencyclidine Screen, Urine Neg (NEGATIVE)
[2023-07-15 20:00] VITALS: TEMP 98.6
[2023-07-15 20:05] LABS: Lactic Acid w/Reflex 3.1 mmol/L (0.4-2.0)
[2023-07-15] MEDS ORDERED: VANCOMYCIN 1GM/250ML 250 ML IV ONE (20:30)
[2023-07-15] MEDS ORDERED: PIPERACILLIN-TAZO 4.5GM 100 ML IV ONE (20:30)
[2023-07-15] MEDS ORDERED: LEVO500T91 PO (21:46)
[2023-07-16 07:50] VITALS: BP 127/54; PULSE 78; RESP 20; O2SAT 96
[2023-07-16] MEDS ORDERED: FOLIC ACID 1 MG, MULTIPLE VITAMIN 10 ML, MAGNESIUM SULF SDV 50% 8 MEQ, THIAMINE INJ 100... INJ SCH ×5 (12:00)
== END 2023-07-16 11:12 | disposition home or self-care (01) ==
LOC: EDBD 17:00 → ER 17:00
DX: R56.9 Unspecified convulsions (principal); A41.9 Sepsis, unspecified organism; J18.9 Pneumonia, unspecified organism; R09.02 Hypoxemia; F10.129 Alcohol abuse with intoxication, unspecified; Z79.899 Other long term (current) drug therapy; Y90.8 Blood alcohol level of 240 mg/100 ml or more
CPT/HCPCS: 36415; 36600; 70450; 71045; 80053; 80307; 80320; 81001; 82805; 83605; 83735; 84484; 85025; 87040; 93005; 94640; 96361; 96365; 96366; 96368; 96375; 99285; J0456; J0696; J1100; J2543; J3370; J7644

== ENCOUNTER 2023-08-14 17:52 | Inpatient (IN) | payer MEDICARE, OTHER ==
[~2023-08-14] VITALS: Ht 152.4 cm; Wt 52.5 kg
[~2023-08-14 17:52] MED LIST changes: +LEVO500T91 PO
[2023-08-14 18:40] VITALS: RESP 19; O2SAT 92
[2023-08-14 19:17] LABS: Base Excess 1.6 mmol/L (-2.0-2.0)
[2023-08-14 19:30] VITALS: RESP 17; O2SAT 100
[2023-08-14 19:30] LABS: Basophils # (auto) 0 10 ^3/uL (0-0.2); Basophils % (auto) 0.2 % (0.0-2.0); Eosinophils # (auto) 0.1 10 ^3/uL (0-0.8); Eosinophils % (auto) 0.6 % (0.0-7.0); Hemoglobin 11.5 g/dL (12.2-16.2); Lymphocytes # (auto) 0.6 10 ^3/uL (0.4-5.4); Lymphocytes % (auto) 4.8 % (10.0-50.0); Mean Corpuscular Hemoglobin 26.6 pg (28.0-32.0); Mean Corpuscular Hgb Conc. 32.1 g/dL (32.0-36.0); Mean Corpuscular Volume 82.9 fL (80.0-100.0); Monocytes # (auto) 0.5 10 ^3/uL (0-1.3); Monocytes % (auto) 3.9 % (0.0-12.0); Neutrophils # (auto) 11.6 10 ^3/uL (1.6-8.6); Neutrophils % (auto) 90.5 % (37.0-80.0); Red Blood Cells 4.34 10^6/uL (4.0-5.20); Red Cell Distribution Width 16.8 % (11.8-14.3); White Blood Cell 12.8 10^3/uL (4.4-10.8)
[2023-08-14 19:49] LABS: Albumin 3.6 g/dL (3.2-4.8); Alkaline Phosphatase 124 U/L (46-116); Anion Gap 9 (5-15); Aspartate Aminotransferase 11 U/L (13-40); BUN/Creatinine Ratio 6.3 (10.0-20.0); Bilirubin, Total 0.3 mg/dL (0.2-1.0); Blood Alcohol < 3.0 mg/dL (<10); Blood Urea Nitrogen 8 mg/dL (9-23); Calcium 8.5 mg/dL (8.5-10.1); Carbon Dioxide 27 mmol/L (20-30); Chloride 104 mmol/L (98-107); Glucose 85 mg/dL (74-106); Potassium 3.2 mmol/L (3.5-5.1); Sodium 140 mmol/L (136-145); Total Protein 5.6 g/dL (5.7-8.2)
[2023-08-14 19:56] LABS: INR 1.12 (0.9-1.15); Partial Thromboplastin Time 31.6 SEC (24.5-34.5); Prothrombin Time 11.7 sec (9.3-11.8)
[2023-08-14] MEDS ORDERED: SODIUM CHLORIDE 0.9% 1,000 ML IV ONE (20:00)
[2023-08-14 20:08] LABS: Alanine Aminotransferase < 9 U/L (7-40)
[2023-08-14 21:30] LABS: Urine Bacteria FEW /hpf (None Seen); Urine Blood Negative /uL (Negative); Urine Clarity HAZY (Clear); Urine Color Yellow (Yellow); Urine Hyaline Cast FEW /lpf (0 - 2); Urine Protein, UAD Negative (Negative); Urine Specific Gravity 1.012 (1.001-1.035); Urine Urobilinogen Normal (Negative); Urine WBC 9 /hpf (0 - 5); Urine pH 5.5 (5.0-8.0)
[2023-08-14 21:34] LABS: Amphetamine Screen, Urine Neg (NEGATIVE); Barbiturate Scree,Urine Neg (NEGATIVE); Benzodiazephine Screen, Urine Neg (NEGATIVE); Cannabinoid Screen, Urine Neg (NEGATIVE); Cocaine Screen, Urine Neg (NEGATIVE); Opiate Scree,Urine Pos (NEGATIVE); Phencyclidine Screen, Urine Neg (NEGATIVE)
[2023-08-14] MEDS ORDERED: ACETAMINOPHEN 325 MG TAB PO PRN (22:15)
[2023-08-14] MEDS ORDERED: ONDANSETRON HCL 4 MG/2 ML VIAL IV PRN (22:15)
[2023-08-14 23:30] VITALS: PULSE 73; RESP 18; O2SAT 100
[2023-08-15] VITALS (9 sets, daily range): BP systolic 97–159; BP diastolic 52–87; PULSE 68–102; RESP 18–20; TEMP 36.8; O2SAT 95–100
[2023-08-15] MEDS: CARBIDOPA W LEVODOPA 25/100mg TABLET PO SCH ×3 (05:41→21:54)
[2023-08-15 05:51] LABS: Basophils # (auto) 0 10 ^3/uL (0-0.2); Basophils % (auto) 0.4 % (0.0-2.0); Eosinophils # (auto) 0.1 10 ^3/uL (0-0.8); Eosinophils % (auto) 0.9 % (0.0-7.0); Lymphocytes # (auto) 0.8 10 ^3/uL (0.4-5.4); Lymphocytes % (auto) 8.6 % (10.0-50.0); Mean Corpuscular Hgb Conc. 32.2 g/dL (32.0-36.0); Mean Corpuscular Volume 83.8 fL (80.0-100.0); Monocytes # (auto) 0.5 10 ^3/uL (0-1.3); Monocytes % (auto) 5.1 % (0.0-12.0); Neutrophils # (auto) 7.6 10 ^3/uL (1.6-8.6); Red Blood Cells 4.06 10^6/uL (4.0-5.20); Red Cell Distribution Width 17.3 % (11.8-14.3)
[2023-08-15 06:03] LABS: Albumin 3.2 g/dL (3.2-4.8); Alkaline Phosphatase 111 U/L (46-116); Anion Gap 10 (5-15); Aspartate Aminotransferase 8 U/L (13-40); BUN/Creatinine Ratio 6.5 (10.0-20.0); Bilirubin, Total 0.2 mg/dL (0.2-1.0); Blood Urea Nitrogen 6 mg/dL (9-23); Calcium 7.7 mg/dL (8.7-10.4); Carbon Dioxide 24 mmol/L (20-30); Chloride 107 mmol/L (98-107); Glucose 69 mg/dL (74-106); Potassium 2.9 mmol/L (3.5-5.1); Sodium 141 mmol/L (136-145)
[2023-08-15 06:31] LABS: Alanine Aminotransferase < 9 U/L (7-40)
[2023-08-15] MEDS: hydroCHLOROthiazide 25 MG TAB PO SCH (09:34)
[2023-08-15] MEDS: cefTRIAXone 1GM/50ML D5W 50 ML IV SCH (09:43)
[2023-08-15] MEDS: ENOXAPARIN SOD 30 MG/0.3 ML SYRINGE SC SCH (09:44)
[2023-08-15] MEDS: LOSARTAN POTASSIUM 50 MG TAB PO SCH (09:44)
[2023-08-15] MEDS ORDERED: POTASSIUM CHLORIDE 80 MEQ, LIDOCAINE 1% (LOCAL ANESTH.) 6 ML in SODIUM CHL 0.9% 500 ML IV ONE (09:45)
[2023-08-15] MEDS ORDERED: BACDST PO (11:01)
[2023-08-15 11:21] LABS: Folate (Folic Acid) 10.05 ng/mL (>5.38)
[2023-08-15] MEDS ORDERED: MAGNESIUM OXIDE 400 MG TAB PO ONE (14:00)
[2023-08-15] MEDS ORDERED: ATORVASTATIN 20 MG TAB PO SCH (22:00)
[2023-08-16 04:48] VITALS: BP 135/57; PULSE 74; RESP 18; TEMP 97.5; O2SAT 96
[2023-08-16] MEDS: CARBIDOPA W LEVODOPA 25/100mg TABLET PO SCH (05:20)
[2023-08-16 07:30] VITALS: PULSE 74; RESP 18
[2023-08-16 09:00] VITALS: BP 125/84; PULSE 74; RESP 16; TEMP 98; O2SAT 97
[2023-08-16] MEDS: cefTRIAXone 1GM/50ML D5W 50 ML IV SCH (09:00)
[2023-08-16] MEDS: LOSARTAN POTASSIUM 50 MG TAB PO SCH (10:00)
[2023-08-16] MEDS: hydroCHLOROthiazide 25 MG TAB PO SCH (10:00)
[2023-08-16] MEDS: ENOXAPARIN SOD 30 MG/0.3 ML SYRINGE SC SCH (10:00)
[2023-08-17 09:13] LABS: Hepatitis B Surface Antigen Negative (Negative)
[2023-08-17 09:34] LABS: Hepatitis C Antibody Negative (Negative)
== END 2023-08-16 09:30 | disposition home or self-care (01) | DRG 71 ==
LOC: EDUNIT# 17:52 → ER 17:52 → EDBD 17:52 → OVERFLOW 22:15 → CENTRAL 23:32
PROVIDERS: ADMIT Nurse Practitioner; ATTEND Student in an Organized Health Care Education/Training Program
DX: G93.41 Metabolic encephalopathy (principal); N39.0 Urinary tract infection, site not specified; N18.9 Chronic kidney disease, unspecified; I48.91 Unspecified atrial fibrillation; F41.9 Anxiety disorder, unspecified; F32.A Depression, unspecified; I12.9 Hypertensive chronic kidney disease with stage 1 through stage 4 chronic kidney disease, or unspecified chronic kidney disease; G20.A1 Parkinson's disease without dyskinesia, without mention of fluctuations; F02.80 Dementia in other diseases classified elsewhere, unspecified severity, without behavioral disturbance, psychotic disturbance, mood disturbance, and anxiety; Z90.710 Acquired absence of both cervix and uterus
CPT/HCPCS: 36415; 36600; 70450; 71045; 80053; 80307; 80320; 81001; 82140; 82607; 82746; 82805; 83605; 83735; 84484; 85025; 85379; 85610; 85730; 86803; 87040; 87086; 87340; 93005; 96360; 99291; G0378; J2001

== ENCOUNTER 2023-12-06 04:17 | Inpatient (IN) | payer OTHER ==
[~2023-12-06] VITALS: Ht 154.9 cm; Wt 51.0 kg
[2023-12-06] VITALS (7 sets, daily range): BP systolic 155–160; BP diastolic 62–82; PULSE 75–85; RESP 16–20; TEMP 97.6–98.7; O2SAT 92–96
[~2023-12-06 04:17] MED LIST changes: +ARIP1TAB59 PO; -ARIP5TAB36 PO; +AUG875T PO; +BACDST PO; +CIPR-173 PO; -FURO20TA3 PO; -IPRAAER6 IN; +LEVE500T40 PO; -LEVO500T91 PO; +LOSA-535 PO; -LOSA100T58 PO; -ROPI1TAB4 PO; +ROPI1TAB78 PO; -SPIR25TA PO; -VANC250PO PO
[2023-12-06 05:20] LABS: Basophils # (auto) 0.1 10 ^3/uL (0-0.2); Basophils % (auto) 0.7 % (0.0-2.0); Chloride 112 mmol/L (98-107); Eosinophils # (auto) 0.2 10 ^3/uL (0-0.8); Eosinophils % (auto) 3.5 % (0.0-7.0); Hematocrit 32.9 % (36.0-46.0); Hemoglobin 10.7 g/dL (12.2-16.2); Lymphocytes # (auto) 0.8 10 ^3/uL (0.4-5.4); Mean Corpuscular Hemoglobin 29.8 pg (28.0-32.0); Mean Corpuscular Hgb Conc. 32.5 g/dL (32.0-36.0); Mean Corpuscular Volume 91.9 fL (80.0-100.0); Monocytes # (auto) 0.4 10 ^3/uL (0-1.3); Monocytes % (auto) 5.9 % (0.0-12.0); Neutrophils # (auto) 5.4 10 ^3/uL (1.6-8.6); Neutrophils % (auto) 77.9 % (37.0-80.0); Nucleated Red Blood Cells % 0.1 %; Potassium 3.8 mmol/L (3.5-5.1); Red Blood Cells 3.58 10^6/uL (4.0-5.20); Red Cell Distribution Width 15.9 % (11.8-14.3); Sodium 147 mmol/L (136-145)
[2023-12-06 05:21] LABS: Anion Gap 6 (5-15); Calcium 9.2 mg/dL (8.7-10.4); Carbon Dioxide 29 mmol/L (20-30)
[2023-12-06 05:26] LABS: BUN/Creatinine Ratio 16.3 (10.0-20.0); Blood Urea Nitrogen 14 mg/dL (9-23); Glucose 85 mg/dL (74-106)
[2023-12-06] MEDS: FUROSEMIDE 40 MG/4 ML VIAL IV ONE (06:01)
[2023-12-06] MEDS: cefTRIAXone 1GM/50ML D5W 50 ML IV ONE (06:48)
[2023-12-06] MEDS ORDERED: ONDANSETRON HCL 4 MG/2 ML VIAL IV PRN (09:00)
[2023-12-06] MEDS ORDERED: ALBUTEROL SULF 2.5 MG/0.5ML(0.5%) NEB SOLN NEB PRN (09:00)
[2023-12-06] MEDS ORDERED: MORPHINE SULFATE INJ 2 MG/ml SYRG IV PRN (09:00)
[2023-12-06] MEDS ORDERED: IPRATROPIUM BROM 0.5 MG/2.5ML INH SOL NEB PRN (09:00)
[2023-12-06] MEDS ORDERED: NITROGLYCERIN 0.4 MG SL TAB SL PRN (09:00)
[2023-12-06] MEDS ORDERED: DOCUSATE SOD 100 MG CAP PO PRN (09:00)
[2023-12-06] MEDS ORDERED: LORazepam 2MG/ML-1ML VIAL IV PRN (09:45)
[2023-12-06] MEDS ORDERED: PATIENTS OWN MEDICATION (Lamotrigine 1 TAB) PO SCH (10:00)
[2023-12-06] MEDS: PARoxetine 20 MG TAB PO SCH (10:29)
[2023-12-06] MEDS: ENOXAPARIN SOD 40 MG/0.4 ML SYRINGE SC SCH (10:34)
[2023-12-06] MEDS: PANTOPRAZOLE 40 MG TAB PO SCH (10:34)
[2023-12-06] MEDS: PRAVASTATIN SODIUM 20 MG TAB PO SCH (10:35)
[2023-12-06] MEDS: levoFLOXacin 750MG 150 ML IV SCH (10:46)
[2023-12-06] MEDS: ACETAMINOPHEN 325 MG TAB PO PRN (10:51)
[2023-12-06] MEDS: CARBIDOPA W LEVODOPA 25/100mg TABLET PO SCH (14:14)
[2023-12-06] MEDS: GABAPENTIN 300 MG CAP PO SCH (14:14)
[2023-12-06] MEDS: FUROSEMIDE 20 MG/2 ML VIAL IV SCH (17:50)
[2023-12-07] VITALS (11 sets, daily range): BP systolic 109–174; BP diastolic 61–94; PULSE 70–98; RESP 16–18; TEMP 97.5–98.8; O2SAT 94–96
[2023-12-07 05:19] LABS: Basophils # (auto) 0.1 10 ^3/uL (0-0.2); Basophils % (auto) 0.9 % (0.0-2.0); Eosinophils # (auto) 0.2 10 ^3/uL (0-0.8); Eosinophils % (auto) 2.4 % (0.0-7.0); Hematocrit 34.8 % (36.0-46.0); Hemoglobin 11.6 g/dL (12.2-16.2); Mean Corpuscular Hemoglobin 29.5 pg (28.0-32.0); Mean Corpuscular Hgb Conc. 33.2 g/dL (32.0-36.0); Mean Corpuscular Volume 88.9 fL (80.0-100.0); Monocytes # (auto) 0.6 10 ^3/uL (0-1.3); Monocytes % (auto) 6.3 % (0.0-12.0); Neutrophils # (auto) 7.2 10 ^3/uL (1.6-8.6); Neutrophils % (auto) 79.4 % (37.0-80.0); Red Blood Cells 3.91 10^6/uL (4.0-5.20); Red Cell Distribution Width 15.6 % (11.8-14.3); White Blood Cell 9.1 10^3/uL (4.4-10.8)
[2023-12-07 05:29] LABS: Chloride 102 mmol/L (98-107); Sodium 143 mmol/L (136-145)
[2023-12-07 05:36] LABS: Calcium 8.7 mg/dL (8.5-10.1); Carbon Dioxide 32 mmol/L (20-30)
[2023-12-07 05:41] LABS: Alkaline Phosphatase 89 U/L (46-116); BUN/Creatinine Ratio 18.1 (10.0-20.0); Blood Urea Nitrogen 15 mg/dL (9-23); Glucose 84 mg/dL (74-106)
[2023-12-07 05:43] LABS: Albumin 3.7 g/dL (3.2-4.8); Aspartate Aminotransferase 21 U/L (13-40); Bilirubin, Total 0.6 mg/dL (0.2-1.0); Total Protein 5.7 g/dL (5.7-8.2)
[2023-12-07 05:52] LABS: Alanine Aminotransferase < 9 U/L (7-40)
[2023-12-07 05:53] LABS: Anion Gap 9 (5-15)
[2023-12-07] MEDS: lamoTRIgine 100 MG TAB PO SCH (10:08)
[2023-12-07 14:00] LABS: Rapid Influenza A Negative (Negative); Rapid Influenza B Negative (Negative)
[2023-12-07 14:01] LABS: COVID19 ANTIGEN SOFIA FIA NEGATIVE (NEGATIVE)
[2023-12-08] VITALS (8 sets, daily range): BP systolic 106–144; BP diastolic 54–72; PULSE 43–116; RESP 16–21; TEMP 97.5–98.7; O2SAT 95–98
[2023-12-09] VITALS (12 sets, daily range): BP systolic 96–119; BP diastolic 51–66; PULSE 98–110; RESP 16–20; TEMP 97.8–98.7; O2SAT 95–98
[2023-12-10] VITALS (9 sets, daily range): BP systolic 92–134; BP diastolic 44–72; PULSE 63–106; RESP 16–20; TEMP 97.8–98.6; O2SAT 93–99
[2023-12-11 04:58] VITALS: BP 128/56; PULSE 87; RESP 17; TEMP 98.1; O2SAT 96
[2023-12-11 08:00] VITALS: PULSE 93
[2023-12-11 09:00] VITALS: BP 117/59; PULSE 94; RESP 19; TEMP 97.9; O2SAT 97
[2023-12-11 09:34] VITALS: O2SAT 94; O2SAT 97
[2023-12-11 12:50] VITALS: BP 114/59; PULSE 99; RESP 18; TEMP 98
[2023-12-11] MEDS ORDERED: LEVO500T91 PO (13:24)
[2023-12-11 17:27] VITALS: PULSE 93
== END 2023-12-11 18:37 | disposition hospice, home (50) | DRG 177 ==
LOC: EDBD 04:17 → ER 04:17 → TELE 08:56 → TELE-WESTW 16:02
PROVIDERS: ADMIT Family Medicine; ATTEND Family Medicine
DX: J15.69 Pneumonia due to other Gram-negative bacteria (principal); I50.43 Acute on chronic combined systolic (congestive) and diastolic (congestive) heart failure; J96.01 Acute respiratory failure with hypoxia; J44.0 Chronic obstructive pulmonary disease with (acute) lower respiratory infection; J15.9 Unspecified bacterial pneumonia; Z20.822 Contact with and (suspected) exposure to COVID-19; I11.0 Hypertensive heart disease with heart failure; G20.A1 Parkinson's disease without dyskinesia, without mention of fluctuations; F41.9 Anxiety disorder, unspecified; Z90.49 Acquired absence of other specified parts of digestive tract; Z90.710 Acquired absence of both cervix and uterus; Z82.49 Family history of ischemic heart disease and other diseases of the circulatory system
CPT/HCPCS: 36415; 71045; 80048; 80053; 83605; 83880; 84484; 85025; 87040; 87426; 87804; 93005; 96365; 96375; G0378; J1956

== ENCOUNTER 2024-02-04 19:38 | Emergency (ER) | payer OTHER ==
[~2024-02-04] VITALS: Ht 152.4 cm; Wt 55.0 kg
[~2024-02-04 19:38] MED LIST changes: +LEVO500T91 PO
[2024-02-04 20:25] LABS: Basophils # (auto) 0.1 10 ^3/uL (0-0.2); Basophils % (auto) 1.3 % (0.0-2.0); Eosinophils # (auto) 0.2 10 ^3/uL (0-0.8); Eosinophils % (auto) 4.4 % (0.0-7.0); Hematocrit 40.7 % (36.0-46.0); Mean Corpuscular Hemoglobin 29.2 pg (28.0-32.0); Mean Corpuscular Volume 91.2 fL (80.0-100.0); Monocytes # (auto) 0.5 10 ^3/uL (0-1.3); Monocytes % (auto) 8.5 % (0.0-12.0); Neutrophils # (auto) 3.6 10 ^3/uL (1.6-8.6); Neutrophils % (auto) 66.8 % (37.0-80.0); Nucleated Red Blood Cells % 0.2 %; Red Blood Cells 4.47 10^6/uL (4.0-5.20); White Blood Cell 5.4 10^3/uL (4.4-10.8)
[2024-02-04 20:37] LABS: Alanine Aminotransferase 29 U/L (7-40); Albumin 4.1 g/dL (3.2-4.8); Alkaline Phosphatase 97 U/L (46-116); Anion Gap 5 (5-15); Aspartate Aminotransferase 18 U/L (13-40); BUN/Creatinine Ratio 18.2 (10.0-20.0); Blood Urea Nitrogen 26 mg/dL (9-23); Calcium 9.5 mg/dL (8.7-10.4); Carbon Dioxide 23 mmol/L (20-30); Chloride 112 mmol/L (98-107); Glucose 79 mg/dL (74-106); Sodium 140 mmol/L (136-145)
[2024-02-04 20:38] LABS: Bilirubin, Total 0.3 mg/dL (0.2-1.0); Total Protein 6.1 g/dL (5.7-8.2)
[2024-02-04 22:25] VITALS: PULSE 65; RESP 13; TEMP 97.7; O2SAT 96
[2024-02-04 23:58] LABS: Urine Bacteria None Seen /hpf (None Seen)
[2024-02-05 00:08] LABS: Urine Amorphous Crystal FEW /hpf (None Seen); Urine Blood Negative /uL (Negative); Urine Clarity Turbid (Clear); Urine Color Yellow (Yellow); Urine Hyaline Cast FEW /lpf (0 - 2); Urine Protein, UAD Negative (Negative); Urine Specific Gravity 1.022 (1.001-1.035); Urine Urobilinogen Normal (Negative); Urine WBC 3 /hpf (0 - 5)
[2024-02-05] MEDS ORDERED: CEPH250C PO (00:27)
[2024-02-05] MEDS: CEPHALEXIN 250 MG CAP PO ONE (00:57)
[2024-02-05 07:37] VITALS: PULSE 61; RESP 12; O2SAT 99
[2024-02-05 15:00] VITALS: BP 138/60; PULSE 65; RESP 10; O2SAT 98
== END 2024-02-05 16:21 | disposition home or self-care (01) ==
LOC: EDBD 19:38 → ER 19:38
DX: N39.0 Urinary tract infection, site not specified (principal); G20.A1 Parkinson's disease without dyskinesia, without mention of fluctuations; I10 Essential (primary) hypertension; F41.9 Anxiety disorder, unspecified; F32.A Depression, unspecified; Z90.49 Acquired absence of other specified parts of digestive tract; Z90.710 Acquired absence of both cervix and uterus; Z90.89 Acquired absence of other organs; Z79.899 Other long term (current) drug therapy
CPT/HCPCS: 36415; 70450; 80053; 81001; 83605; 84484; 85025; 93005